=== PATIENT | male | born 1960 | race Caucasian/White ===

== ENCOUNTER → 2018-05-22 | Outpatient (CLI) | payer MEDICARE, MEDICAID ==
[~2018-05-22] MED LIST: None per pt
[2018-05-22 13:30] LABS: BASOPHILS # (AUTO) 0.03 x10^3/uL (0-0.1); BASOPHILS % (AUTO) 0 % (0-1); EOSINOPHILS # (AUTO) 0.25 x10^3/uL (0-0.4); EOSINOPHILS % (AUTO) 2 % (1-7); LYMPHOCYTES % (AUTO) 24 % (22-44); MD NO; MEAN CORPUSCULAR HEMOGLOBIN 26.4 pg (27.5-34.5); MEAN CORPUSCULAR HGB CONC 32.8 g/dL (33.2-36.2); MEAN CORPUSCULAR VOLUME 80.5 fL (81-97); MEAN PLATELET VOLUME 8.7 fL (7.4-10.4); MONOCYTES # (AUTO) 0.77 x10^3/uL (0.2-0.8); MONOCYTES % (AUTO) 7 % (2-9); NEUTROPHILS # (AUTO) 7.74 x10^3/uL (1.8-6.8); NEUTROPHILS % (AUTO) 67 % (42-75); PLATELET COUNT 297 x10^3/uL (130-400); RED BLOOD COUNT 6.64 x10^6/uL (4.38-5.82); RED CELL DISTRIBUTION WIDTH 15.1 % (9.4-14.8)
[2018-05-22 13:30] LABS: MICROSCOPIC NOT IND
[2018-05-22 13:33] LABS: CULTURE INDICATED? NO
[2018-05-22 13:42] LABS: ANION GAP 7 mmol/L (5-15); CALCIUM 9.1 mg/dL (8.5-10.1); CHLORIDE 106 mmol/L (98-107); CREATININE 1.34 mg/dL (0.7-1.3)
== END | disposition home or self-care (01) ==
LOC: STAR 11:46
PROVIDERS: ATTEND Orthopaedic Surgery
DX: Z01.818 Encounter for other preprocedural examination (principal); T84.84XD Pain due to internal orthopedic prosthetic devices, implants and grafts, subsequent encounter; Z96.651 Presence of right artificial knee joint
CPT/HCPCS: 36415; 80048; 81003; 85025; 87081; 87147; 93005

== ENCOUNTER 2018-05-26 09:41 | Inpatient (IN) | payer MEDICARE, MEDICAID ==
[2018-05-22 12:26] VITALS: BP 139/91
[~2018-05-26] VITALS: Ht 182.9 cm; Wt 88.8 kg
[~2018-05-26 09:41] MED LIST changes: +DAKIN'S SOLUTION 1/4 STRENGTH 1,000 ML IRRIG SOLN EXT SCH
[2018-05-26] MEDS ORDERED: LACTATED RINGERS 1,000 ML IV SCH (10:19)
[2018-05-26] MEDS ORDERED: LIDOCAINE-MPF 1%, 2ML INFIL ONE (10:30)
[2018-05-26] MEDS ORDERED: VANCOMYCIN PER PHARMACY MC ONE (10:30)
[2018-05-26] MEDS ORDERED: VANCOMYCIN 1,900 MG in SODIUM CHLORIDE 0.9% 250 ML IV ONE (11:00)
[2018-05-26] MEDS ORDERED: ACETAMINOPHEN 500 MG TABLET PO ONE (11:00)
[2018-05-26] MEDS ORDERED: ONDANSETRON ODT 8 MG PO ONE (11:00)
[2018-05-26] MEDS ORDERED: GABAPENTIN 300 MG CAPSULE PO ONE (11:00)
[2018-05-26] MEDS ORDERED: TAMSULOSIN 0.4 MG CAP.ER.24H PO ONE (11:00)
[2018-05-26] MEDS ORDERED: FENTANYL PF 100 MCG/2ML ONE ×2 (12:06→17:38)
[2018-05-26] MEDS ORDERED: MIDAZOLAM 1 MG/ML, 2ML ONE (12:07)
[2018-05-26] MEDS ORDERED: KETOROLAC 60 MG/2 ML ONE (12:50)
[2018-05-26] MEDS ORDERED: ROPIvacaine/PF 0.2%, 20 ML ONE (12:50)
[2018-05-26] MEDS ORDERED: TRANEXAMIC ACID 100 MG/ML, 10ML ONE (12:50)
[2018-05-26] MEDS ORDERED: SODIUM CHLORIDE 0.9% 100 ML ONE (12:51)
[2018-05-26] MEDS ORDERED: EPINEPHRINE 1 MG/ML, 1ML ONE (12:51)
[2018-05-26] MEDS ORDERED: LIDOCAINE 2% 100MG/5ML SYRINGE ONE (13:06)
[2018-05-26] MEDS ORDERED: PHENYLEPHRINE 10 MG/ML ONE (13:06)
[2018-05-26] MEDS ORDERED: ROCURONIUM 10MG/ML,5ML ONE (13:06)
[2018-05-26] MEDS ORDERED: SUCCINYLCHOLINE 20 MG/ML, 10ML ONE (13:06)
[2018-05-26] MEDS ORDERED: MEPERIDINE/PF 100 MG/ML ONE (13:33)
[2018-05-26] MEDS ORDERED: KETAMINE 50 MG/ML, 10ML ONE (13:40)
[2018-05-26] MEDS ORDERED: FENTANYL PF 250 MCG/5ML ONE (13:49)
[2018-05-26] MEDS ORDERED: TOBRAMYCIN SULFATE 1.2 GM IMP ONE (13:56)
[2018-05-26] MEDS ORDERED: VANCOMYCIN 1,000 MG ONE ×2 (13:56→14:10)
[2018-05-26] MEDS ORDERED: OXYcodone 5 MG/5 ML ORAL.SOL UDC PO PRN (14:30)
[2018-05-26] MEDS ORDERED: PROMETHAZINE 25 MG SUPP PR PRN (14:30)
[2018-05-26] MEDS ORDERED: hydrALAzine 20 MG/ML, 1ML IV PRN (14:30)
[2018-05-26] MEDS ORDERED: DIAZEPAM 5 MG/ML, 2ML IVPush PRN (14:30)
[2018-05-26] MEDS ORDERED: MEPERIDINE/PF 25MG/0.5ML IVPush PRN (14:30)
[2018-05-26] MEDS ORDERED: LABETALOL 5MG/ML, 20ML IV PRN (14:30)
[2018-05-26] MEDS ORDERED: HYDROmorphone 1 MG/ML, 1ML IV PRN ×2 (14:30→17:00)
[2018-05-26] MEDS ORDERED: MIDAZOLAM 1 MG/ML, 2ML IV PRN (14:30)
[2018-05-26] MEDS ORDERED: ALBUTEROL/IPRATROPIUM 2.5MG/0.5MG, 3 ML NPPB PRN (14:30)
[2018-05-26] MEDS ORDERED: ONDANSETRON 2MG/ML, 2ML IV PRN ×2 (14:30→17:00)
[2018-05-26] MEDS ORDERED: SCOPOLAMINE PATCH, 1.5MG PATCH.TD72 TD PRN ×2 (14:30→17:00)
[2018-05-26] MEDS ORDERED: ROPIvacaine/PF 0.2%, 100ML 550 ML (check volume) INJ ONE (16:00)
[2018-05-26] MEDS ORDERED: DEXAMETHASONE 4 MG/ML, 1ML ONE (16:02)
[2018-05-26] MEDS ORDERED: PROPOFOL 10 MG/ML, 20ML ONE (16:02)
[2018-05-26] MEDS ORDERED: CEFAZOLIN 1,000 MG ONE (16:02)
[2018-05-26] MEDS ORDERED: SENNA/DOCUSATE TABLET PO PRN (17:00)
[2018-05-26] MEDS ORDERED: ALUMINUM/MAG/SIMETHICONE 30 ML UDC PO PRN (17:00)
[2018-05-26] MEDS ORDERED: DIAZEPAM 5 MG TABLET PO PRN (17:00)
[2018-05-26] MEDS ORDERED: LORazepam 1MG TABLET PO PRN (17:00)
[2018-05-26] MEDS ORDERED: DIPHENHYDRAMINE 25 MG CAPSULE PO PRN (17:00)
[2018-05-26] MEDS ORDERED: ZOLPIDEM 5MG TABLET PO PRN (17:00)
[2018-05-26] MEDS ORDERED: TRANEXAMIC ACID 1,000 MG in SODIUM CHLORIDE 0.9% 100 ML IVPB ONE (17:00)
[2018-05-26] MEDS ORDERED: PROMETHAZINE 12.5 MG SUPP PR PRN (17:00)
[2018-05-26] MEDS ORDERED: MAGNESIUM HYDROXIDE 8%, 30ML UDC PO PRN (17:00)
[2018-05-26] MEDS ORDERED: HYDROcodone/APAP 5/325 TABLET PO PRN (17:00)
[2018-05-26] MEDS ORDERED: BISACODYL 10 MG SUPP PR PRN (17:00)
[2018-05-26] MEDS ORDERED: ONDANSETRON 4 MG TABLET PO PRN (17:00)
[2018-05-26] MEDS ORDERED: ACETAMINOPHEN 650 MG/20.3 ML UDC PO PRN (17:00)
[2018-05-26] MEDS ORDERED: VANCOMYCIN PER PHARMACY MC PRN (17:00)
[2018-05-26] MEDS ORDERED: PROMETHAZINE 25 MG/ML, 1ML IM PRN (17:00)
[2018-05-26] MEDS ORDERED: OXYcodone 5 MG/5 ML ORAL.SOL UDC ONE (17:38)
[2018-05-26] MEDS: FENTANYL PF 100 MCG/2ML IV PRN ×2 (17:41→17:47)
[2018-05-26] MEDS ORDERED: PHARMACOKINETIC CONSULTATION MC ONE (19:30)
[2018-05-26] MEDS ORDERED: PHARMACOKINETIC MONITORING MC PRN (19:30)
[2018-05-26] MEDS: OXYcodone IR 5MG TABLET PO PRN ×2 (19:32→23:33)
[2018-05-26 20:14] LABS: CREATININE 1.53 mg/dL (0.7-1.3)
[2018-05-26 20:18] VITALS: BP 105/67
[2018-05-26] MEDS: DOCUSATE 100 MG CAPSULE PO SCH (21:53)
[2018-05-26] MEDS: D5%-0.45% NACL 1,000 ML IV SCH (23:14)
[2018-05-27] MEDS: CEFAZOLIN 2,000 MG in SODIUM CHLORIDE 0.9% 50 ML IVPB SCH ×2 (00:05→08:39)
[2018-05-27 00:30] VITALS: BP 95/61
[2018-05-27] MEDS: OXYcodone IR 5MG TABLET PO PRN ×5 (03:51→20:05)
[2018-05-27 04:45] VITALS: BP 105/62
[2018-05-27 08:11] VITALS: BP 128/65
[2018-05-27] MEDS: DOCUSATE 100 MG CAPSULE PO SCH ×2 (08:28→19:51)
[2018-05-27] MEDS: MULTIVITAMINS/MINERALS TABLET PO SCH (08:29)
[2018-05-27] MEDS: D5%-0.45% NACL 1,000 ML IV SCH ×2 (08:39→17:37)
[2018-05-27] MEDS ORDERED: HYDROmorphone 2 MG/ML, 1ML ONE (13:58)
[2018-05-27 14:32] VITALS: BP 114/73
[2018-05-27] MEDS: VANCOMYCIN 1,900 MG in SODIUM CHLORIDE 0.9% 250 ML IV SCH (14:59)
[2018-05-27] MEDS: ASPIRIN 81 MG TABLET EC PO SCH (17:37)
[2018-05-27] MEDS: CEFAZOLIN PMX 2GM/50ML 50 ML IVPB SCH (17:37)
[2018-05-27] MEDS: KETOROLAC 30 MG/1 ML IV SCH (17:37)
[2018-05-27 20:10] VITALS: BP 107/73
[2018-05-28] MEDS: OXYcodone IR 5MG TABLET PO PRN ×4 (01:17→19:51)
[2018-05-28] MEDS: KETOROLAC 30 MG/1 ML IV SCH ×2 (01:17→08:53)
[2018-05-28] MEDS: CEFAZOLIN PMX 2GM/50ML 50 ML IVPB SCH ×3 (01:39→19:25)
[2018-05-28] MEDS: D5%-0.45% NACL 1,000 ML IV SCH ×2 (02:25→14:30)
[2018-05-28 02:30] VITALS: BP 117/73
[2018-05-28 05:28] LABS: ALANINE AMINOTRANSFERASE 18 U/L (12-78); ALBUMIN 2.4 g/dL (3.4-5.0); ANION GAP 6 mmol/L (5-15); CALCIUM 7.3 mg/dL (8.5-10.1); CHLORIDE 109 mmol/L (98-107)
[2018-05-28 05:36] LABS: HCT (SEDRATE) 31.5 % (39.2-51.8)
[2018-05-28 05:38] LABS: MEAN CORPUSCULAR HEMOGLOBIN 26.6 pg (27.5-34.5); MEAN CORPUSCULAR VOLUME 80.6 fL (81-97); MEAN PLATELET VOLUME 8.3 fL (7.4-10.4); PLATELET COUNT 204 x10^3/uL (130-400); RED CELL DISTRIBUTION WIDTH 14.7 % (9.4-14.8)
[2018-05-28 05:39] LABS: ALKALINE PHOSPHATASE 61 U/L (45-117); BASOPHILS # (AUTO) 0.03 x10^3/uL (0-0.1); BASOPHILS % (AUTO) 0 % (0-1); BILIRUBIN,TOTAL 0.3 mg/dL (0.2-1.0); CREATININE 1.17 mg/dL (0.7-1.3); EOSINOPHILS # (AUTO) 0.08 x10^3/uL (0-0.4); EOSINOPHILS % (AUTO) 1 % (1-7); LYMPHOCYTES % (AUTO) 26 % (22-44); MD NO; MONOCYTES # (AUTO) 0.78 x10^3/uL (0.2-0.8); MONOCYTES % (AUTO) 9 % (2-9); NEUTROPHILS % (AUTO) 63 % (42-75); TOTAL PROTEIN 5.1 g/dL (6.4-8.2)
[2018-05-28] MEDS: ASPIRIN 81 MG TABLET EC PO SCH ×2 (06:47→18:17)
[2018-05-28 07:04] VITALS: BP 111/69
[2018-05-28] MEDS: MULTIVITAMINS/MINERALS TABLET PO SCH (08:52)
[2018-05-28] MEDS: DOCUSATE 100 MG CAPSULE PO SCH ×2 (08:52→19:51)
[2018-05-28 12:38] VITALS: BP 100/58
[2018-05-28] MEDS: VANCOMYCIN 1,900 MG in SODIUM CHLORIDE 0.9% 250 ML IV SCH (15:23)
[2018-05-28 18:41] VITALS: BP 122/78
[2018-05-29] MEDS: D5%-0.45% NACL 1,000 ML IV SCH ×3 (00:30→20:30)
[2018-05-29 02:03] VITALS: BP 111/75
[2018-05-29] MEDS: OXYcodone IR 5MG TABLET PO PRN (03:30)
[2018-05-29] MEDS: CEFAZOLIN PMX 2GM/50ML 50 ML IVPB SCH ×2 (03:30→12:33)
[2018-05-29] MEDS: ASPIRIN 81 MG TABLET EC PO SCH ×2 (04:28→17:59)
[2018-05-29 07:30] VITALS: BP 134/89
[2018-05-29] MEDS: MULTIVITAMINS/MINERALS TABLET PO SCH (09:58)
[2018-05-29] MEDS: DOCUSATE 100 MG CAPSULE PO SCH ×2 (09:58→19:58)
[2018-05-29] MEDS ORDERED: VANCOMYCIN 1,900 MG in SODIUM CHLORIDE 0.9% 250 ML IV SCH (15:00)
[2018-05-29 15:03] VITALS: BP 129/79
[2018-05-29 20:20] VITALS: BP 130/81
[2018-05-29] MEDS: ERTAPENEM 1 GM in SODIUM CHLORIDE 0.9% 50 ML IV SCH (20:29)
[2018-05-29] MEDS ORDERED: OXYcodone/APAP 5/325MG TABLET PO PRN (20:30)
[2018-05-30] MEDS ORDERED: VANCOMYCIN 1,900 MG in SODIUM CHLORIDE 0.9% 250 ML IV SCH (04:00)
[2018-05-30 05:42] VITALS: BP 111/72
[2018-05-30] MEDS: ASPIRIN 81 MG TABLET EC PO SCH (05:45)
[2018-05-30] MEDS: D5%-0.45% NACL 1,000 ML IV SCH (06:30)
[2018-05-30] MEDS: MULTIVITAMINS/MINERALS TABLET PO SCH (08:43)
[2018-05-30] MEDS: DOCUSATE 100 MG CAPSULE PO SCH (08:43)
[2018-05-30 08:50] VITALS: BP_SYST 106; BP_SYST 98; BP_DIAS 61; BP_DIAS 69
[2018-05-30] MEDS ORDERED: OXYC5CAP2 PO (11:38)
[2018-05-30] MEDS ORDERED: ASPI-621 PO (11:39)
[2018-05-30] MEDS: ERTAPENEM 1 GM in SODIUM CHLORIDE 0.9% 50 ML IV SCH (14:39)
[2018-05-30 15:35] VITALS: BP 107/70
== END 2018-05-30 16:30 | disposition home or self-care (01) | DRG 463 ==
LOC: ORIP 09:41 → 4NOR 18:21 → DCLOUNGE 05-30 16:18
PROVIDERS: ADMIT Orthopaedic Surgery; ATTEND Orthopaedic Surgery
PROC: 0SHC08Z Insertion of Spacer into Right Knee Joint, Open Approach (ICD-10-PCS; 2018-05-26)
PROC: 0SBC0ZZ Excision of Right Knee Joint, Open Approach (ICD-10-PCS; 2018-05-26)
PROC: 0SPC0JZ Removal of Synthetic Substitute from Right Knee Joint, Open Approach (ICD-10-PCS; principal; 2018-05-26 12:45)
PROC: 02HV33Z Insertion of Infusion Device into Superior Vena Cava, Percutaneous Approach (ICD-10-PCS; 2018-05-27)
PROC: B548ZZA Ultrasonography of Superior Vena Cava, Guidance (ICD-10-PCS; 2018-05-27)
DX: T84.53XA Infection and inflammatory reaction due to internal right knee prosthesis, initial encounter (principal); N17.0 Acute kidney failure with tubular necrosis; Y83.1 Surgical operation with implant of artificial internal device as the cause of abnormal reaction of the patient, or of later complication, without mention of misadventure at the time of the procedure; Z96.651 Presence of right artificial knee joint; Z87.81 Personal history of (healed) traumatic fracture; Y92.89 Other specified places as the place of occurrence of the external cause
CPT/HCPCS: 36415; 36569; 76937; 77001; 80053; 80202; 82565; 84520; 85014; 85018; 85025; 85651; 86140; 87070; 87075; 87102; 87176; 87205; C1713; G0378; J0171; J0690; J1100; J1170; J1335; J1885; J2250; J2704; J2795; J3010; J3260; J3370; Q0162; C1751; J0330; J2175; J2370; J7050; J7120

== ENCOUNTER → 2018-08-05 | Outpatient (CLI) | payer MEDICARE, MEDICAID ==
[~2018-08-05] MED LIST changes: +ASCO500T8 PO; +ASPI81TA45 PO; -DAKIN'S SOLUTION 1/4 STRENGTH 1,000 ML IRRIG SOLN EXT SCH; +OXYC5CAP2 PO
== END | disposition home or self-care (01) ==
LOC: STAR 15:08
PROVIDERS: ATTEND Orthopaedic Surgery
DX: M66 Spontaneous rupture of synovium and tendon (principal); T84.84XD Pain due to internal orthopedic prosthetic devices, implants and grafts, subsequent encounter; Z96.651 Presence of right artificial knee joint; X58.XXXD Exposure to other specified factors, subsequent encounter
CPT/HCPCS: 87081; 87147